=== PATIENT | female | born 1970 | race Asian ===

== ENCOUNTER 2018-08-05 09:05 | Outpatient (CLI) | payer BC | END 2018-08-05 09:06 | disposition home or self-care (01) | LOC: DI 09:05 | PROVIDERS: ATTEND Family Medicine | DX: Z12.31 Encounter for screening mammogram for malignant neoplasm of breast (principal) | CPT/HCPCS: 77063; 77067 ==

== ENCOUNTER 2019-03-02 09:37 | Emergency (ER) | payer OTHER ==
--- NOTE | 2019-03-02 10:41 | ED Physician Documentation ---
History of Present Illness - Stated complaint Stated Complaint: BACK PX - Chief complaint Chief Complaint: Back Pain - Additonal information Additional information: This is a 48-year-old female who presents with back pain. Patient states that around 48 hours ago she began having soreness in her lower back/gluteal region. It is worse when she extends her leg when she twists in certain movements. She can also find ascitic spot that is sore. She denies any radiation down her leg. She denies any weakness or numbness in her leg. She has no urinary or bowel complaints. She did not fall impact her back. She has no history of cancer. No chest pain or shortness of breath, no dysuria. No anterior abdominal pain. No concern for . Review of Systems Constitutional: denies: Fever GI: denies: Abdominal Pain : denies: Dysuria Musculoskeletal: reports: Back pain PD PAST MEDICAL HISTORY - Present Medications Home Medications: Ambulatory Orders Medication Instructions Recorded Confirmed Acyclovir 800 mg PO PRN PRN 03/02/19 03/02/19 Cyclobenzaprine [Flexeril] 10 mg PO TID PRN #14 tablet 03/02/19 Cyclobenzaprine [Flexeril] 20 mg PO ACHS 03/02/19 03/02/19 DULoxetine [Cymbalta] 60 mg PO DAILY 03/02/19 03/02/19 Gabapentin 300 mg PO ACHS 03/02/19 03/02/19 Lidocaine Patch 5% [Lidoderm Patch] 1 each TOP DAILY PRN #7 patch 03/02/19 Metoprolol Tartrate 50 mg PO DAILY 03/02/19 03/02/19 Norgestimate-Ethinyl Estradiol 1 each PO DAILY 03/02/19 03/02/19 [[place]] Nystatin 1 each MC PRN PRN MDD 800 03/02/19 03/02/19 Prednisolone [Millipred] 5 mg PO DAILY 03/02/19 03/02/19 Zolpidem [Ambien] 10 mg PO HS 03/02/19 03/02/19 - Allergies Allergies/Adverse Reactions: Allergies Allergy/AdvReac Type Severity Reaction Status Date / Time leflunomide Allergy Unknown Verified 03/02/19 10:01 lorazepam [From Ativan] Allergy Edema Verified 03/02/19 10:00 Tetracyclines AdvReac Hives Verified 03/02/19 10:00 - Living Situation Living Arrangement: reports: At home - Social History Smoking Status: Former smoker PD ED PE NORMAL - Vitals Vital signs reviewed: Yes - General General: Alert and oriented X 3, No acute distress - HEENT HEENT: Atraumatic, PERRL - Neck Neck: Supple, no meningeal sign - Cardiac Cardiac: RRR - Respiratory Respiratory: No respiratory distress - Abdomen Abdomen: Normal bowel sounds, Soft, Non tender, Non distended - Back Back: No spinal TTP, Other (Back is normal and atraumatic in appearance. No midline tenderness. There is mild tenderness in the paraspinous muscles on the left lower lumbar region. Negative straight leg raise bialterally. Normal gait and good ROM with flexion and extension) - Derm Derm: Warm and dry - Extremities Extremities: No deformity - Neuro Neuro: Alert and oriented X 3, No motor deficit, No sensory deficit - Psych Psych: Normal mood, Normal affect Results - Vitals Vitals: Oxygen O2 Source Room air PD MEDICAL DECISION MAKING - ED course ED course: Pt has no urinary symptoms to suggest pyelo, she has reproducible tenderness in the lower paraspinous muscles. Her limbs are neurovascularly intact. No hx of cancer, trauma, fever, weakness, bowel/bladder complaints, and patient is age<50, walking without issue. This appears to be a muscle strain and imaging does not appear necessary at this time. I discussed supportive care, return precautions, and the need for close PCP follow up. Pt agrees with this plan and was discharged home. Departure - Departure Disposition: 01 Home, Self Care Clinical Impression: Back pain Qualifiers: Back pain location: low back pain Chronicity: acute Back pain laterality: left Sciatica presence: unspecified whether sciatica present Qualified Code(s): M54.5 - Low back pain Condition: Good Instructions: ED Neck Back Pain General Follow-Up: Lokesh Goins MD [Primary Care Provider] - Within 1 week (For follow up on pain) Prescriptions: Cyclobenzaprine [Flexeril] 10 mg PO TID PRN #14 tablet PRN Reason: Spasms Lidocaine Patch 5% [Lidoderm Patch] 1 each TOP DAILY PRN #7 patch PRN Reason: Pain Comments: At this time I think you most likely have a back strain. Please try resting, you can use the lidocaine patch, Flexeril, as well as ibuprofen 600 mg and Tylenol 650 mg every 6 hours as needed for pain. Follow-up with your primary care provider. If you are developing weakness, numbness, fever, or other concerning symptoms please return to the emergency department. Discharge Date/Time: 03/02/19 13:02
[2019-03-02] MEDS ORDERED: KETOROLAC 30 MG/ML VIAL IVP STA (11:09)
[2019-03-02 11:37] VITALS: BP 143/96
== END 2019-03-02 13:02 | disposition home or self-care (01) ==
LOC: ED 09:37
DX: M54.5 Low back pain (principal); Z87.891 Personal history of nicotine dependence
CPT/HCPCS: 96374; 99284